=== PATIENT | female | born 1955 | race Two or more races ===

== ENCOUNTER 2023-03-24 09:12 | Day surgery (SDC) | payer OTHER ==
[2023-03-21 10:32] LABS: URINE APPEARANCE Clear; URINE BILIRRUBIN Negative (NEGATIVE); URINE BLOOD Negative; URINE COLOR Yellow; URINE LEUKOCYTE Negative; URINE NITRATE Negative; URINE PROTEIN Negative (NEGATIVE); URINE UROBILINOGEN 0.2 E.U./dl
[2023-03-21 10:36] LABS: URINE EPITHELIAL CELLS 57.4 uL (0.0-38.8); URINE WBC 36.7 uL (0.0-23.2)
[2023-03-21 10:39] LABS: HEMATOCRIT 37.7 % (36.0-45.00); HEMOGLOBIN 12.5 g/dL (12.0-15.00); MEAN CELL VOLUME 86.3 fL (80.00-100.00); MEAN CORPUSCULAR HEMOGLOBIN 28.6 pg (27.00-32.0); MEAN CORPUSCULAR HGB CONC 33.1 g/dl (32.0-36.0); PLATELET COUNT 292 K/uL (150-450); RED BLOOD COUNT 4.36 M/uL (4.00-6.00); RED CELL DISTRIBUTION WIDTH 14.2 % (11.5-14.5)
[2023-03-21 11:02] LABS: INR < 0.93; PARTIAL THROMBOPLASTIN TIME 27.5 SECONDS (22.0-34.0); PROTHROMBIN TIME 9.7 SECONDS (9.0-11.5)
[2023-03-21 11:34] LABS: ALBUMIN 3.8 gm/dL (3.4-5.0); BILIRUBIN TOTAL 0.33 mg/dL (0.3-1.2); CALCIUM 9.5 mg/dL (8.5-10.1); CREATININE SERUM 0.61 mg/dL (0.55-1.02); GFR 98.43; GLOBULINA 3.5 G/DL (2.4-3.5); POTASSIUM 3.66 mEq/L (3.5-5.1); TOTAL PROTEIN 7.3 gm/dL (6.4-8.2); TSH 1.38 uIU/mL (0.358-3.74)
[2023-03-21 11:40] LABS: URINE GLUCOSE >=1000 MG/DL (NEGATIVE); URINE RBC 1.5 uL (0.0-20.8)
[~2023-03-24 09:12] MED LIST: ADULT LOW DOSE81 M1 PO; HYDROCHLOROTH12.5 MG PO; METFOR PO; NORVASC5 MG PO; OMEGA3 PO; SIMVAST PO; TOPROL XL50 M1 PO; ZESTRIL20 MG PO; [UNRECOGNIZED DRUG - OTHER] PO
[2023-03-24] MEDS ORDERED: MORGIDOX100 MG PO (11:22)
[2023-03-24] MEDS ORDERED: NAPR500T14 PO (11:22)
== END 2023-03-24 17:00 | disposition home or self-care (01) ==
LOC: CIR.AMB 09:12
PROVIDERS: ATTEND Obstetrics & Gynecology
DX: N85.01 Benign endometrial hyperplasia (principal); D25.0 Submucous leiomyoma of uterus; N95.0 Postmenopausal bleeding; Z20.822 Contact with and (suspected) exposure to COVID-19; I10 Essential (primary) hypertension

== ENCOUNTER 2023-05-10 09:30 | Inpatient (IN) | payer OTHER ==
[~2023-05-10] VITALS: Ht 162.6 cm; Wt 75.3 kg
[~2023-05-10 09:30] MED LIST changes: +MORGIDOX100 MG PO; +NAPR500T14 PO
[2023-05-10 10:46] LABS: HEMATOCRIT 37.3 % (36.0-45.00); HEMOGLOBIN 12.6 g/dL (12.0-15.00); MEAN CELL VOLUME 84.6 fL (80.00-100.00); MEAN CORPUSCULAR HEMOGLOBIN 28.5 pg (27.00-32.0); MEAN CORPUSCULAR HGB CONC 33.7 g/dl (32.0-36.0); PLATELET COUNT 288 K/uL (150-450); RED BLOOD COUNT 4.41 M/uL (4.00-6.00); RED CELL DISTRIBUTION WIDTH 14.1 % (11.5-14.5)
[2023-05-10 10:47] LABS: URINE APPEARANCE Clear; URINE BILIRRUBIN Negative (NEGATIVE); URINE BLOOD Negative; URINE COLOR Yellow; URINE LEUKOCYTE Negative; URINE NITRATE Negative; URINE PROTEIN Negative (NEGATIVE); URINE UROBILINOGEN 0.2 E.U./dl
[2023-05-10 10:53] LABS: URINE BACTERIA 307.3 uL (0.0-1933); URINE EPITHELIAL CELLS 11.1 uL (0.0-38.8); URINE RBC 2.1 uL (0.0-20.8); URINE WBC 22.7 uL (0.0-23.2)
[2023-05-10 10:56] LABS: URINE GLUCOSE >=1000 MG/DL (NEGATIVE)
[2023-05-10 11:14] LABS: INR < 0.93; PARTIAL THROMBOPLASTIN TIME 29.6 SECONDS (22.0-34.0); PROTHROMBIN TIME 9.8 SECONDS (9.0-11.5)
[2023-05-10 11:39] LABS: ALBUMIN 3.9 gm/dL (3.4-5.0); BILIRUBIN TOTAL 0.42 mg/dL (0.3-1.2); CALCIUM 9.4 mg/dL (8.5-10.1); CREATININE SERUM 0.54 mg/dL (0.55-1.02); GFR 112.95; GLOBULINA 3.4 G/DL (2.4-3.5); POTASSIUM 3.92 mEq/L (3.5-5.1); TOTAL PROTEIN 7.3 gm/dL (6.4-8.2); TSH 1.86 uIU/mL (0.358-3.74)
[2023-05-19 22:06] LABS: HEMATOCRIT 35.8 % (36.0-45.00); HEMOGLOBIN 11.9 g/dL (12.0-15.00); MEAN CELL VOLUME 85.2 fL (80.00-100.00); MEAN CORPUSCULAR HEMOGLOBIN 28.3 pg (27.00-32.0); MEAN CORPUSCULAR HGB CONC 33.2 g/dl (32.0-36.0); PLATELET COUNT 287 K/uL (150-450); RED BLOOD COUNT 4.21 M/uL (4.00-6.00); RED CELL DISTRIBUTION WIDTH 13.9 % (11.5-14.5)
[2023-05-20] MEDS ORDERED: Tylenol #3 PO (08:35)
== END 2023-05-20 10:22 | disposition home or self-care (01) | DRG 743 ==
LOC: OB/GYN 05-19 09:30 → O/R 05-19 09:38 → OB/GYN 05-19 12:45 → O/R 05-19 18:26 → SURH 05-19 19:35
PROVIDERS: ADMIT Obstetrics & Gynecology; ATTEND Obstetrics & Gynecology
PROC: 0UT78ZZ Resection of Bilateral Fallopian Tubes, Via Natural or Artificial Opening Endoscopic (ICD-10-PCS; 2023-05-19)
PROC: 0UT28ZZ Resection of Bilateral Ovaries, Via Natural or Artificial Opening Endoscopic (ICD-10-PCS; 2023-05-19)
PROC: 0JQC0ZZ Repair Pelvic Region Subcutaneous Tissue and Fascia, Open Approach (ICD-10-PCS; 2023-05-19)
PROC: 0USG0ZZ Reposition Vagina, Open Approach (ICD-10-PCS; 2023-05-19)
PROC: 0TJB8ZZ Inspection of Bladder, Via Natural or Artificial Opening Endoscopic (ICD-10-PCS; 2023-05-19)
PROC: 0UT98ZZ Resection of Uterus, Via Natural or Artificial Opening Endoscopic (ICD-10-PCS; principal; 2023-05-19 12:45)
DX: N80.03 Adenomyosis of the uterus (principal); N72 Inflammatory disease of cervix uteri; Z20.822 Contact with and (suspected) exposure to COVID-19; N81.11 Cystocele, midline